=== PATIENT | female | born 1960 | race Caucasian/White ===

== ENCOUNTER 2025-02-14 12:58 | Emergency (ER) | payer SELFPAY ==
[2025-02-14 13:00] VITALS: BP 182/92
[2025-02-14 13:25] LABS: Hematocrit 40.6 % (37.0-47.0); Hemoglobin 13.4 g/dL (12.0-16.0); Mean Corp Hgb Conc. 33.0 g/dL (33.0-37.0); Mean Corpuscular Volume 87.3 fL (81.0-99.0); Nucleated Red Blood Cells % 0 %; Platelet Count 364 10^3/uL (130-400); Red Cell Dist. Width 12.0 % (11.5-14.5)
[2025-02-14 13:43] LABS: ALT (SGPT) 24 U/L (0-35); AST (SGOT) 30 U/L (14-36); Albumin 4.6 g/dl (3.5-5.0); Alkaline Phosphatase 89 U/L (38-126); Blood Urea Nitrogen 17 mg/dl (7-17); Calcium 10.1 mg/dl (8.4-10.2); Carbon Dioxide 27 mmol/L (22-30); Chloride 105 mmol/L (98-107); Glucose 107 mg/dl (70-99); Potassium 4.6 mmol/L (3.5-5.1); Sodium 141 mmol/L (135-145); Total Protein 7.7 g/dl (6.3-8.2); eGFR > 60.00
[2025-02-14 14:13] LABS: COVID-19 Antigen Negative (Negative)
--- NOTE | 2025-02-14 14:39 | ED.GENMED ---
History of Present Illness
General
Chief Complaint: Skin Problem
Source: patient and family
Exam Limitations: none
Time Seen by Provider: 02/14/25 14:22
Nursing documentation reviewed up to this point in time: agreed with
History of Present Illness
History of Present Illness:
Patient to ED with complaint of sorethroat, enlarged cervical lymph nodes, fever. Symptoms started approx 3 days ago. Son states she taking an antibiotic from [facility] without improvement. Denies any difficulty breathing or swallowing. Brought to
ED by son for eval.
Past History
Past History
ED Past Medical History: None
Review of Systems
Review of Systems
Allergies reviewed?: Yes
All Other Systems: ROS reviewed and negative except as documented in HPI and ROS
Constitutional: Reports fever
EENT: Reports sore throat and other (Bilateral enlarged ant. cervical lymph nodes.)
Respiratory: Reports no symptoms
Cardiac: Reports no symptoms
ABD/GI: Reports no symptoms
: Reports no symptoms
Musculoskeletal: Reports no symptoms
Skin: Reports no symptoms
Neurological: Reports no symptoms
Psychiatric: Reports no symptoms
Phy Exam
General Physical Exam
General Presentation: well appearing and no apparent distress
General age: appears stated age
General Skin: warm and dry
General Habitus: normal
General Mental: alert
ENT Exam
ENT Exam: EOMI, TM's normal, swallowing well and other (mild pharynx erythema, no exudate. Mild left tonsilar swelling, no exudate. Uvula is midline. No evidence of peritonsilar abscess/cellulitis)
Cardiovascular Exam
Cardiovascular Exam: regular rate/rhythm and no edema
Pulmonary Exam
Pulmonary Exam: lungs clear and no respiratory distress
Neurological Exam
Neurological Exam: alert, oriented x3, CN II-XII intact, no motor deficits, no sensory deficits and speech normal
Musculoskeletal Exam
Musculoskeletal Exam: full ROM and neuro vasc intact
Skin Exam
Skin Exam: normal color, warm/dry and no rash
Psychiatric Exam
Psychiatric Exam: normal mood/affect
Course
Orders/Labs/Results
Orders:
Orders
02/14/25 13:10
COVID-19 Antigen Urgent
Source: Nasal Swab
Complete Blood Count/With Diff Urgent
Comprehensive Metabolic Panel Urgent
Monotest Urgent
Influenza A+B Rapid Molecular Urgent
MAYRA Source: Nasal Swab
Specimen Description:
02/14/25 13:12
Add On- LAB Urgent
Tests Added?: mono
02/14/25 13:36
Rapid Strep Group A Urgent
MAYRA Source: Throat/Pharynx
Specimen Description:
Date Specimen was Collected: 02/14/25
Time Specimen was Collected: 13:12
Abnormal Lab Results
02/14/25
13:10
Absolute Monos (auto) 0.7 H 10^3/uL
(0.1-0.6)
Glucose 107 H mg/dl
(70-99)
02/14/25 13:10
02/14/25 13:10
Vital Signs
Initial and Last Documented VS:
Initial Vital Signs
Temp Pulse Resp BP Pulse Ox
98.6 F 86 17 182/92 99
02/14/25 13:00 02/14/25 13:00 02/14/25 13:00 02/14/25 13:00 02/14/25 13:00
Last Documented Vital Signs
Temp Pulse Resp BP Pulse Ox
98.6 F 86 17 182/92 99
02/14/25 13:00 02/14/25 13:00 02/14/25 13:00 02/14/25 13:00 02/14/25 13:00
*Pulse Oximetry
SaO2: 99
Oxygen Mode of Delivery: Room air
Patient hypoxic: no
*Critical Care Note
Total Time (30-74mins, 75-104mins- exclusive of procedures): Not Applicable
Update Note
Update Note:
Patient to ED with complaint of fver, sorethroat x 3 days. [place] VSS, afebrile in ED. Labs reviewed, WBC normal. Covid, influenza, mono, strep neg. No difficulty breathing or swallowing. Mild
erythema of pharynx,mild left tonsillar swelling. No exudate. Bilateral ant. cervical lymp nodes, mildly enlarged, firm, tender. Full ROM to neck. No meningeal s/s. Suspect viral etiology. Recommend tylenol or ibuprofen for fever/pain, increase
fluids, rest. She does not have PCP, will provide clinic info. SHe was given instructions on s/s to return to ED and she is agreeable to plan
ED Attending Note
-
Portions of this chart may have been created with voice recognition software.� Occasional wrong word or��sound alike� substitutions may have occurred due to the inherent limitations of voice recognition software.
Discharge Plan
Departure
Patient Disposition: Home (Routine Discharge)
Date of Disposition: 02/14/25
Time of Disposition: 14:37
Patient with high blood pressure during this ER visit?: No
Condition: Good
Covid-19: Not Applicable
Discharge Problem:
Acute viral pharyngitis
Instructions: Swollen lymph nodes in adults, Sore Throat - Adult
Referrals:
[facility] [Outside] - Call in 1-3 days for appt
UNKNOWN - PT DOES,NOT KNOW [Family Provider]
Activity Restrictions/Additional Instructions:
Return to the emergency department immediately for any changes in/worsening of your symptoms.
Interventions
Interventions:
*Risk Screen - Suicide Last Done: 02/14/25 13:03
*General Assessment Last Done: 02/14/25 13:03
*Neglect/Abuse Screening Last Done: 02/14/25 13:03
*ED- Fall Risk Assessment Last Done: 02/14/25 13:35
*ED COVID-19 Vaccine History Last Done: 02/14/25 13:03
*ED Influenza Vaccine History Last Done: 02/14/25 13:03
Discharge Date and Time
Print Language: JORDANIAN
== END 2025-02-14 14:53 | disposition home or self-care (01) ==
LOC: EMR 12:58
PROVIDERS: Physician Assistant; EMERGENCY PHYSICIAN Emergency Medicine
DX: J02.8 Acute pharyngitis due to other specified organisms (principal); B97.89 Other viral agents as the cause of diseases classified elsewhere; Z11.52 Encounter for screening for COVID-19
CPT/HCPCS: 99283; 80053; 85025; 86308; 87070; 87502; 87811; 87880